=== PATIENT | female | born 1990 | race Caucasian/White ===

== ENCOUNTER 2019-01-27 21:39 | Emergency (ER) | payer OTHER ==
[~2019-01-27] VITALS: Ht 157.5 cm; Wt 77.3 kg
[2019-01-27 21:44] VITALS: BP 143/78
== END 2019-01-27 23:00 | disposition left against medical advice (07) ==
LOC: EMS 21:41
DX: J02.9 Acute pharyngitis, unspecified (principal); R51 Headache; Z53.21 Procedure and treatment not carried out due to patient leaving prior to being seen by health care provider